=== PATIENT | male | born 1985 | race Caucasian/White ===

== ENCOUNTER 2017-12-24 07:08 | Emergency (ER) | payer OTHER ==
[2017-12-24 07:30] VITALS: RESP 18; TEMP 98
--- NOTE | 2017-12-24 08:30 | ED ---
General Adult HPI - General Chief complaint: Recheck/Abnormal Lab/Rx Stated complaint: lip swelling Time Seen by Provider: 12/24/17 08:12 Source: patient, RN notes reviewed Mode of arrival: ambulatory Limitations: no limitations - History of Present Illness Initial comments: Patient is a pleasant 32-year-old male presenting to the emergency department with lip swelling. Onset was when he woke this morning. Patient did notice 2 small bumps. Patient does complain of discomfort. No other areas of involvement. Patient does have a history of previous MRSA infection associated with sores however this does not feel similar. No fevers. Swelling is right side of the lower lip. No other area of involvement. No dyspnea. No throat or tongue swelling. - Related Data Previous Rx's Medication Instructions Recorded Cephalexin [Keflex] 500 mg PO QID #40 cap 12/24/17 predniSONE 20 mg PO BID #8 tab 12/24/17 Allergies Allergy/AdvReac Type Severity Reaction Status Date / Time No Known Allergies Allergy Verified 12/24/17 07:49 Review of Systems ROS Statement: Those systems with pertinent positive or pertinent negative responses have been documented in the HPI. ROS Other: All systems not noted in ROS Statement are negative. Constitutional: Denies: fever Eyes: Denies: eye pain ENT: Denies: ear pain Respiratory: Denies: cough Cardiovascular: Denies: chest pain Endocrine: Denies: fatigue Gastrointestinal: Denies: abdominal pain Genitourinary: Denies: dysuria Musculoskeletal: Denies: back pain Skin: Denies: rash Neurological: Denies: weakness Past Medical History Past Medical History: Asthma History of Any Multi-Drug Resistant Organisms: MRSA Date of last positivie culture/infection: MDRO Source:: lower abdomin Past Surgical History: Cholecystectomy Past Psychological History: No Psychological Hx Reported Smoking Status: Current every day smoker Past Alcohol Use History: None Reported Past Drug Use History: Marijuana General Exam Limitations: no limitations General appearance: alert, in no apparent distress Head exam: Present: atraumatic Eye exam: Present: normal appearance, PERRL ENT exam: Present: normal oropharynx, other (Right lower lip with moderate swelling. There is appearance of a small papule, possible puncture or bug bite. No swelling of the tongue or pharynx.) Neck exam: Present: normal inspection Respiratory exam: Present: normal lung sounds bilaterally Cardiovascular Exam: Present: regular rate, normal rhythm GI/Abdominal exam: Present: soft. Absent: tenderness Extremities exam: Present: normal inspection Neurological exam: Present: alert Psychiatric exam: Present: normal affect, normal mood Skin exam: Present: other (See ENT) Course Vital Signs 12/24/17 07:27 Temperature 98.0 F Pulse Rate 74 Respiratory 18 Rate Blood Pressure 142/88 O2 Sat by Pulse 97 Oximetry Medical Decision Making - Medical Decision Making Patient presents with acute right lower lip swelling. Likely a bite/insect envenomation. Patient will be covered with antibiotics and steroids and advised to return if symptoms worsen. Disposition Clinical Impression: Swollen lip Disposition: HOME SELF-CARE Condition: Stable Instructions: Insect Bite or Sting (ED) Additional Instructions: Please follow-up with primary care physician in the next day or 2 for recheck. Return for fever, difficulty breathing, swelling of the throat or tongue, increased swelling or worsening symptoms or other concerns. Prescriptions: Cephalexin [Keflex] 500 mg PO QID #40 cap predniSONE 20 mg PO BID #8 tab Referrals: Elvi Moss MD [STAFF PHYSICIAN] - 1-2 days Time of Disposition: 08:30
[2017-12-24 09:09] VITALS: BP 149/76; PULSE 75
== END 2017-12-24 09:07 | disposition home or self-care (01) ==
LOC: EC 07:08
DX: R22.0 Localized swelling, mass and lump, head (principal); F17.200 Nicotine dependence, unspecified, uncomplicated; Z86.14 Personal history of Methicillin resistant Staphylococcus aureus infection
CPT/HCPCS: 99283

== ENCOUNTER → 2021-01-12 | Outpatient (CLI) | payer OTHER ==
[2021-01-12 18:12] LABS: HCT 34.1 % (39.6-50.0); HGB 9.5 g/dL (13.0-17.0); MCH 20.5 pg (27.0-32.0); MCHC 27.9 g/dL (32.0-37.0); MCV 73.7 fL (80.0-97.0); Platelet Count 295 X 10*3/uL (140-440); RBC 4.63 X 10*6/uL (4.40-5.60); RDW 21.3 % (11.5-14.5); WBC 6.46 X 10*3/uL (4.50-10.00)
[2021-01-12 18:36] LABS: Basophils # (A) 0.06 X 10*3/uL (0.00-0.10); Basophils % (A) 0.9 %; Eosinophils % (A) 4.6 %; Lymphocytes # (A) 1.15 X 10*3/uL (0.90-5.00); Lymphocytes % (A) 17.8 %; Monocytes # (A) 0.57 X 10*3/uL (0.20-1.00); Monocytes % (A) 8.8 %; Neutrophils # (A) 4.37 X 10*3/uL (1.80-7.70); Neutrophils % (A) 67.7 %
[2021-01-12 18:37] LABS: Hypochromasia (M) 2+; Microcytosis (M) 2+
[2021-01-13 01:12] LABS: Albumin 4.5 g/dL (3.80-4.90); Albumin/Globulin Ratio 1.96 (1.60-3.17); Anion Gap 12.1 mmol/L (4.00-12.00); BUN/Creat Ratio 11.11 Ratio (12.00-20.00); Calcium 8.8 mg/dL (8.7-10.3); Carbon Dioxide 23.9 mmol/L (21.6-31.8); Globulin 2.3 g/dL (1.6-3.3); Non-African American GFR(CKD) 108.7 (60.0-200.0); Potassium 4.1 mmol/L (3.5-5.5); Total Bilirubin 0.3 mg/dL (0.2-1.2); Total Protein 6.8 g/dL (6.2-8.2)
== END | disposition home or self-care (01) ==
LOC: LABWHC1 09:32
PROVIDERS: ATTEND Nurse Practitioner
DX: K92.2 Gastrointestinal hemorrhage, unspecified (principal)
CPT/HCPCS: 36415; 80053; 85025